=== PATIENT | female | born 1985 | race Caucasian/White ===

== ENCOUNTER 2018-04-06 13:05 | Emergency (ER) | payer OTHER, SELFPAY ==
[2018-04-06 13:07] VITALS: BP 115/58; PULSE 89; RESP 18; TEMP 36.9; O2SAT 99
[2018-04-06 14:22] VITALS: BP 105/92; PULSE 86; RESP 23; O2SAT 100
--- NOTE | 2018-04-06 14:41 | DI.US.S_ITS ---
PROCEDURE: US ABDOMEN COMPLETE INDICATIONS: Epigstric pain, radiation to back TECHNIQUE: Real-time scanning was performed of the abdominal and retroperitoneal organs, with image documentation. COMPARISON: [facility], [place], ABDOMEN COMPLETE, 12/14/2017, 17:58. FINDINGS: Liver: Liver is normal in size and homogeneous in echotexture. Gallbladder: The bladder is normal in size and contains a 9 mm gallstone within the region of the neck of the gallbladder. Mild thickening of the wall of the gallbladder is present, measuring up to 4 mm. No pericholecystic fluid is evident. Biliary ducts: Intrahepatic bile ducts are non-dilated. Extrahepatic bile duct caliber measures 6 mm. Normal is 6-7 mm or less in diameter, or 10 mm or less post-cholecystectomy. Pancreas: Visualized portions of the pancreas are sonographically normal. Spleen: Spleen is normal in size and homogeneous in echotexture. Kidneys: Kidneys are normal in size and echotexture. Right kidney measures 12.7 cm long; left kidney measures 14.1 cm long. No hydronephrosis or nephrolithiasis. No solid masses. Aorta: Visualized aorta is normal in caliber at less than 3 cm. Iliacs: Obscured by bowel gas. IVC: Intrahepatic inferior vena cava is patent. Miscellaneous: No free abdominal fluid. The heart rate was measured at 128bpm. IMPRESSION: 1. Cholelithiasis with mild gallbladder wall thickening is nonspecific. Please correlate clinically to exclude the possibility of cholecystitis. 2. Live intrauterine . Dictated by: Jasper Devlin M.D. on 04/06/2018 at 15:41 Approved by: Jasper Devlin M.D. on 04/06/2018 at 16:04
--- NOTE | 2018-04-06 14:41 | DI.US.S_ITS ---
PROCEDURE: US PERIPH VENOUS LOW EXTREM BI INDICATIONS: hx PE, sent by high school art teacher for CP/SOB TECHNIQUE: Real-time imaging, as well as color and pulse Doppler interrogation, were performed of the deep veins of both legs from the inguinal ligament to the popliteal fossa. COMPARISON: None. FINDINGS: The deep veins are normally compressible, and free of intraluminal thrombus. Color and pulse Doppler demonstrate normal phasic intravascular flow. There is normal augmentation response to distal compression maneuver. IMPRESSION: No evidence of deep venous thrombosis. Dictated by: Lenny Woody M.D. on 04/06/2018 at 14:35 Approved by: Lenny Woody M.D. on 04/06/2018 at 14:41
[2018-04-06 14:51] LABS: Add Manual Diff / Slide Review NO; Basophils Percent Auto 0.3 % (0-2); Eosinophils Percent Auto 1.4 % (2-4); Hematocrit 32.9 % (36-46); Hemoglobin 10.7 g/dL (12.0-16.0); Mean Corpuscular HGB Conc 32.4 % (30-36); Mean Corpuscular Hemoglobin 25.3 PG (26-34); Mean Corpuscular Volume 78.2 fL (80-100); Monocytes Percent Auto 4.6 % (3-14); Neutrophils Absolute Auto 6800 /uL (3000-5900); Neutrophils Percent Auto 74.7 % (50-75); Platelet Count 204 X10^3/uL (150-400); Red Blood Cell Count 4.21 X10^6/uL (4.0-5.2); Red Cell Distribution Width 14.9 % (11.6-14.8); White Blood Cell Count 9.1 X10^3/uL (4.5-11.0)
[2018-04-06 15:04] LABS: Alanine Aminotransferase 13 IU/L (9-52); Albumin 3.7 g/dL (3.5-5.0); Albumin Globulin Ratio 1.1 (1.0-2.8); Alkaline Phosphatase 70 U/L (38-126); Aspartate Aminotransferase 11 IU/L (14-36); BUN Creatinine Ratio 17.5 (6-22); Bilirubin Total 0.3 mg/dL (0.2-1.3); Blood Urea Nitrogen 7 mg/dL (7-17); Carbon Dioxide 25 mmol/L (22-32); Chloride 102 mmol/L (98-107); Estimated Glomerular Filt Rate > 60.0 mL/min (>60); Globulin 3.4 g/dL (1.7-4.1); Glucose 82 mg/dL (70-100); HEMOLYSIS < 15 (0-50); Lipase 127 U/L (23-300); Sodium 137 mmol/L (137-145); Total Protein 7.1 g/dL (6.3-8.2)
[2018-04-06 15:21] LABS: HCG Quantitative /Beta subunit 12143 mIU/mL
[2018-04-06 15:34] VITALS: BP 108/56; PULSE 80; RESP 30; O2SAT 99
[2018-04-06 16:05] VITALS: BP 106/56; PULSE 96; RESP 27; O2SAT 100
--- NOTE | 2018-04-06 16:11 | ED_ITS ---
HPI - SOB/Dyspnea General Chief Complaint: Shortness of Breath/Dyspnea Stated Complaint: BACK PAIN Time Seen by Provider: 04/06/18 14:12 Source: patient Mode of arrival: ambulatory Limitations: no limitations History of Present Illness 32-year-old female is a at 29 weeks with a history of high risk . She had a pulmonary embolism after last and is still taking Lovenox. She presents with epigastric pain that radiates to her back and is made worse a big deep breath. She denies fever or chills nor nausea or vomiting. She denies any swelling, redness or warmth of her lower extremities. MD Complaint: shortness of breath and pain with inspiration Onset (ago): day(s) Severity: moderate Consistency/Duration: intermittent Known history of: PE Associated symptoms: chest pain and pain with inspiration Treatment prior to arrival: none Related Data Home Medications Medication Instructions Recorded Confirmed aspirin 81 mg PO QDAY #0 12/14/17 04/06/18 vit-iron fum-folic ac 1 cap PO QDAY #0 12/14/17 04/06/18 [Mynatal] enoxaparin 40 mg SUB-Q DAILY 04/06/18 04/06/18 ferrous sulfate 1 tab PO DAILY 04/06/18 04/06/18 omeprazole 20 mg PO DAILY 04/06/18 04/06/18 Previous Rx's Medication Instructions Recorded ondansetron [Zofran ODT] 4 mg SUBLINGUAL Q6HP PRN #30 odt 12/14/17 Allergies Allergy/AdvReac Type Severity Reaction Status Date / Time albuterol [From VENTOLIN HFA] Allergy Unknown Unverified 01/27/18 12:43 sulfamethoxazole Allergy Unknown Unverified 01/27/18 12:43 [From BACTRIM] trimethoprim [From BACTRIM] Allergy Unknown Unverified 01/27/18 12:43 Review of Systems Review of Systems All systems reviewed & are unremarkable except as noted in HPI and below Constitutional Denies chills, Denies fever(s), Denies lethargy and Denies weakness Eyes Denies change in vision, Denies eye discharge, Denies irritation and Denies loss of vision ENT Ears, Nose, Mouth, and Throat: Denies change in voice, Denies neck pain and Denies sore throat Cardiovascular Reports chest pain, Denies irregular heart rhythm, Denies lightheadedness, Denies palpitations, Denies dyspnea, Denies dyspnea on exertion and Denies orthopnea Respiratory Denies cough, Reports pain on inspiration, Denies dyspnea, Denies dyspnea on exertion and Denies wheezing Gastrointestinal Gastrointestinal: Reports abdominal pain, Denies change in bowel habits, Denies diarrhea, Denies nausea and Denies vomiting Genitourinary Denies hematuria, Denies flank pain, Denies urinary incontinence and Denies urinary urgency Musculoskeletal Denies neck pain Integumentary/Breasts Denies pruritus, Denies erythema, Denies rash and Denies wounds Neurologic Denies confusion, Denies loss of vision and Denies weakness Psychiatric Denies anxiety, Denies confusion, Denies depression, Denies homicidal ideation and Denies suicidal ideation Endocrine Denies palpitations Hematologic/Lymphatic Denies easy bruising Allergic/Immunologic Denies wheezing PFSH Social History Smoking Status: Never smoker Exam Narrative Exam Narrative: Pleasant 32-year-old female in no obvious distress, resting comfortably Initial Vital Signs Initial Vital Signs: Vital Signs Temperature 98.5 F 04/06/18 13:07 Pulse Rate 89 04/06/18 13:07 Respiratory Rate 18 04/06/18 13:07 Blood Pressure 115/58 L 04/06/18 13:07 Pulse Oximetry 99 04/06/18 13:07 Const General: cooperative and well developed Nutritional Appearance: well nourished Orientation: alert, awake, oriented x3 and not confused [facility] Head: normocephalic and atraumatic Ears: external ears normal and TM's normal bilaterally Nose: external nose normal and No nasal discharge Face and sinus: sinuses nontender, face symmetric, no sinus tenderness and No dry mucous membranes Mouth: oral mucosae normal and moist mucous membranes Teeth and gingiva: dentition normal Throat: tonsils normal and uvula midline Eyes General: appearance normal, both eyes and all related structures Eyelids: eyelids normal Conjunctivae: conjunctivae normal Sclera: sclerae normal Pupils: PERRL EOM: EOM intact bilaterally Neck Neck: normal visual inspection, trachea midline, No lymphadenopathy, No midline deformity and No JVD Lymphatic: No lymphedema Chest Chest: normal inspection of the chest Resp Effort & Inspection: normal respiratory effort, able to speak in complete sentences, no respiratory distress and no use of accessory muscles Auscultation: clear to auscultation bilaterally, no rales, no rhonchi and no wheezes Cardio Rate: regular rate Rhythm: regular rhythm Heart Sounds: no click, no gallops, no murmurs and no rubs Pulses: normal peripheral pulses GI Inspection: non-distended Palpation: soft, no hepatosplenomegaly, No guarding, No pulsatile mass and tender (Epigastrium) Auscultation: normal bowel sounds Back/Spine/Pelvis Back: No CVA tenderness Cervical Spine: cervical ROM normal and No pain with cervical ROM Thoracic/Lumbar Spine: thoracic and lumbar spine normal to inspection Skin General: no rashes or lesions noted, No jaundice and No petechiae Neuro General: alert, oriented x3, gait normal and no focal motor deficits Speech: speech normal Extrem General: full ROM, no clubbing, cyanosis or edema, no pedal edema and no calf tenderness Psych Appearance: well kempt Mental Status: mental status grossly normal Attitude: cooperative Thought Content: normal and suicidality Judgment: judgment good Course Orders Ordered: ED Orders 04/06/18 14:41 US abdomen complete Stat US periph venous low extrem bi Stat 04/06/18 14:45 Complete Blood Count AUTO DIFF Stat Comprehensive Metabolic Panel Stat HCG Quantitative Stat Lipase Stat Consultations Consultation #1: call to Dr. Artur Kapoor (nuclear equipment sales engineer) at [facility], Dr. Woody returned paged. Discusse presentation, labs, imaging. No signs of PE. Ok to DC Time: 16:20 Vital Signs - 8 hr 04/06/18 13:07 04/06/18 14:22 04/06/18 15:34 Temperature 98.5 F Pulse Rate 89 86 80 Respiratory Rate 18 23 30 H Blood Pressure 115/58 L Blood Pressure [Right Arm] 105/92 H 108/56 L Pulse Oximetry 99 100 99 MDM - SOB/Dyspnea Medical Records Attestation: I reviewed the patient's medical records. Lab Data Result diagrams: 04/06/18 14:45 04/06/18 14:45 Lab Results 04/06/18 04/06/18 Range/Units 14:45 14:45 WBC 9.1 (4.5-11.0) X10^3/uL RBC 4.21 (4.0-5.2) X10^6/uL Hgb 10.7 L (12.0-16.0) g/dL Hct 32.9 L (36-46) % MCV 78.2 L (80-100) fL MCH 25.3 L (26-34) PG MCHC 32.4 (30-36) % RDW 14.9 H (11.6-14.8) % Plt Count 204 (150-400) X10^3/uL Neut % (Auto) 74.7 (50-75) % Lymph % (Auto) 19.0 L (25-40) % [place] % (Auto) 4.6 (3-14) % Eos % (Auto) 1.4 L (2-4) % Baso % (Auto) 0.3 (0-2) % Neut # (Auto) 6800 H (6102-7008) /uL Sodium 137 (137-145) mmol/L Potassium 4.0 (3.4-5.1) mmol/L Chloride 102 (98-107) mmol/L Carbon Dioxide 25 (22-32) mmol/L BUN 7 (7-17) mg/dL Creatinine 0.40 L (0.52-1.04) mg/dL Estimated GFR > 60.0 (>60) mL/min BUN/Creatinine Ratio 17.5 (6-22) Glucose 82 (70-100) mg/dL Calcium 9.0 (8.4-10.2) mg/dL Total Bilirubin 0.3 (0.2-1.3) mg/dL AST 11 L (14-36) IU/L ALT 13 (9-52) IU/L Alkaline Phosphatase 70 (38-126) U/L Total Protein 7.1 (6.3-8.2) g/dL Albumin 3.7 (3.5-5.0) g/dL Globulin 3.4 (1.7-4.1) g/dL Albumin/Globulin Ratio 1.1 (1.0-2.8) Lipase 127 (23-300) U/L HCG, Quant 05337 mIU/mL Imaging Data US - abdomen: Radiologist's impression: PROCEDURE: US ABDOMEN COMPLETE INDICATIONS: Epigstric pain, radiation to back TECHNIQUE: Real-time scanning was performed of the abdominal and retroperitoneal organs, with image documentation. COMPARISON: [facility], US, ABDOMEN COMPLETE, 12/14/2017, 17:58. FINDINGS: Liver: Liver is normal in size and homogeneous in echotexture. Gallbladder: The bladder is normal in size and contains a 9 mm gallstone within the region of the neck of the gallbladder. Mild thickening of the wall of the gallbladder is present, measuring up to 4 mm. No pericholecystic fluid is evident. Biliary ducts: Intrahepatic bile ducts are non-dilated. Extrahepatic bile duct caliber measures 6 mm. Normal is 6-7 mm or less in diameter, or 10 mm or less post-cholecystectomy. Pancreas: Visualized portions of the pancreas are sonographically normal. Spleen: Spleen is normal in size and homogeneous in echotexture. Kidneys: Kidneys are normal in size and echotexture. Right kidney measures 12.7 cm long; left kidney measures 14.1 cm long. No hydronephrosis or nephrolithiasis. No solid masses. Aorta: Visualized aorta is normal in caliber at less than 3 cm. Iliacs: Obscured by bowel gas. IVC: Intrahepatic inferior vena cava is patent. Miscellaneous: No free abdominal fluid. The heart rate was measured at 128bpm. IMPRESSION: 1. Cholelithiasis with mild gallbladder wall thickening is nonspecific. Please correlate clinically to exclude the possibility of cholecystitis. 2. Live intrauterine . Dictated by: Jasper Devlin M.D. on 04/06/2018 at 15:41 Approved by: Jasper Devlin M.D. on 04/06/2018 at 16:04 B/L LE DVT: Radiologist's impression: PROCEDURE: US PERIPH VENOUS LOW EXTREM BI INDICATIONS: hx PE, sent by highway inspector for CP/SOB TECHNIQUE: Real-time imaging, as well as color and pulse Doppler interrogation, were performed of the deep veins of both legs from the inguinal ligament to the popliteal fossa. COMPARISON: None. FINDINGS: The deep veins are normally compressible, and free of intraluminal thrombus. Color and pulse Doppler demonstrate normal phasic intravascular flow. There is normal augmentation response to distal compression maneuver. IMPRESSION: No evidence of deep venous thrombosis. Dictated by: Lenny Woody M.D. on 04/06/2018 at 14:35 Approved by: Lenny Woody M.D. on 04/06/2018 at 14:41 MDM Narrative Medical decision making narrative: Patient has reproducible epigastric pain with radiation to her back. She has known gallbladder disease. She is on Lovenox, denies shortness of breath, has normal vitals, and normal lower extremity DVTs, she is very low risk of a clinically significant PE and at this point we will avoid use of potentially damaging radiation. I have discussed this with her OB group as well as patient, risks and benefits have been discussed Discharge Plan Departure Patient Disposition: Home, Self-Care Clinical Impression: Epigastric abdominal pain Instructions: DI for Epigastric Pain Activity Restrictions/Additional Instructions: 1. Drink plenty of fluids with frequent small sips. 2. For the next 24 hours a clear liquid diet is advised. After that please employ a BRAT diet which would include bananas, rice, apples, toast. 3. Please take medications as directed. 4. Please follow-up with your doctor in the next 1-2 days. Call the office for an appointment. 5. Please return to the emergency Department for any worsening or persistent symptoms, such as increasing pain or fever. Prescriptions: No Action aspirin 81 MG tablet,delayed release (DR/EC) 81 mg PO QDAY Qty: 0 RF: 0 vit-iron fum-folic ac [Mynatal] 1 EACH capsule 1 cap PO QDAY Qty: 0 RF: 0 ondansetron [Zofran ODT] 4 MG tablet,disintegrating 4 mg Sublingual Q6HP PRNQty: 30 RF: 0 ferrous sulfate 325 mg (65 mg iron) tablet 1 tab PO DAILY RF: 0 omeprazole 20 mg capsule,delayed release(DR/EC) 20 mg PO DAILY RF: 0 enoxaparin 40 mg/0.4 mL syringe 40 mg Sub-Q DAILY RF: 0
[2018-04-06 16:35] VITALS: BP 115/71; PULSE 98; RESP 20; TEMP 36.8; O2SAT 97
== END 2018-04-06 16:46 | disposition home or self-care (01) ==
PROVIDERS: Emergency Provider Emergency Medicine
DX: R10.13 Epigastric pain (principal)
CPT/HCPCS: 36591; 76700; 80053; 81003; 83690; 84702; 85025; 93970; 99283; 99284

== ENCOUNTER 2019-06-13 12:18 | Emergency (ER) | payer OTHER, SELFPAY ==
[2019-06-13 12:20] VITALS: BP 124/56; PULSE 84; RESP 18; TEMP 36.7; O2SAT 97
[2019-06-13 12:52] LABS: Hematocrit 37.6 % (36-46); Hemoglobin 12.3 g/dL (12.0-16.0); Mean Corpuscular HGB Conc 32.7 % (30-36); Mean Corpuscular Hemoglobin 26.6 PG (26-34); Mean Corpuscular Volume 81.4 fL (80-100); Platelet Count 240 X10^3/uL (150-400); Red Blood Cell Count 4.61 X10^6/uL (4.0-5.2); Red Cell Distribution Width 14.9 % (11.6-14.8); White Blood Cell Count 7.7 X10^3/uL (4.5-11.0)
[2019-06-13 13:02] LABS: Blood Urea Nitrogen 19 mg/dL (7-17); Calcium 9.4 mg/dL (8.4-10.2); Carbon Dioxide 26 mmol/L (22-32); Chloride 105 mmol/L (98-107); Estimated Glomerular Filt Rate > 60.0 mL/min (>60); Glucose 93 mg/dL (70-100); HEMOLYSIS < 15 (0-50); Potassium 4.2 mmol/L (3.4-5.1); Sodium 141 mmol/L (137-145)
[2019-06-13 13:16] LABS: Anisocytosis 1+; Neutrophils Absolute Manual 4158 /uL (3000-5900); Total Cells Counted 100
[2019-06-13 13:17] LABS: Polychromasia 1+
--- NOTE | 2019-06-13 13:17 | ED.PREGNANCY ---
[facility] - Last Filed: 06/14/19 01:49> General Chief complaint: Vaginal Bleeding Stated complaint: Feeling weak and dizzy Time Seen by Provider: 06/13/19 12:35 Source: patient Mode of arrival: ambulatory Limitations: no limitations History of Present Illness HPI Narrative: This is a 33-year-old female, nonsmoker, who presents with heavy menstruation since 04/15/2019. Patient reports she had started heavy menses since her last child delivery and bilateral tubal ligation in JUL 2018. Patient reports she has to change has Q1-2 hours and she is tired of cramping discomfort in abdomen and back, and bleeding. Patient reports no chest pain, breathing difficulty but some weakness and mild lightheadedness. She denies urinary symptoms such as dysuria, burning with urination but she has urinary frequency. However, she reports has been increasing oral hydration. The patient was seen at [facility] by Dr. Ortega who is conference interpreter specialist and was prescribed with Provera on Thursday. She has been taking this medication as instructed and noticed her bleeding is heavier now with more clots. She called the office to be seen today but there was no available appointment and was referred to emergency room. She is waiting for OB surgeon evaluation at [facility] for possible hysterectomy. Patient has been ibuprofen 800 mg about 3 times a day. Related Data Home Medications Medication Instructions Recorded Confirmed ergocalciferol (vitamin D2) 50,000 unit PO QWEEK 06/13/19 06/13/19 ferrous sulfate 1 dose PO 2XW 06/13/19 06/13/19 trazodone 50 - 150 mg PO BEDTIME PRN 06/13/19 06/13/19 Allergies Allergy/AdvReac Type Severity Reaction Status Date / Time albuterol [From VENTOLIN HFA] Allergy Unknown Verified 06/13/19 12:27 sulfamethoxazole Allergy Unknown Verified 06/13/19 12:27 [From BACTRIM] trimethoprim [From BACTRIM] Allergy Unknown Verified 06/13/19 12:27 Review of Systems <[facility] - Last Filed: 06/14/19 01:49> Review of Systems ROS Unobtainable: All systems reviewed & are unremarkable except as noted in HPI and below PMFSH - <[facility] - Last Filed: 06/14/19 01:49> Past Medical History Menorrhagia, PE, miscarriage, cholelithiasis Exam <ELISA Cagle - Last Filed: 06/14/19 01:49> Narrative Exam Narrative: General appearance: well developed, well nourished, in no acute distress. Head: normocephalic, atraumatic, no scalp lesions, non-tender. Eye: pupil equal, round. EOMI. Nose: nares patent. Oral: mucosa moist. Neck/Thyroid: neck supple, full range of motion, no visible masses. Skin: no suspicious rashes, lesions over visible areas. Warm and dry. Heart: no clubbing, no cyanosis, no edema. Lungs: Breathing even and unlabored. No stridor. No accessory muscles used. Chest: normal shape and expansion. Abdomen: non-obese, non-distended. Neurologic: alert and oriented. Cognitive exam, PSYCHIATRIC TECH and PNS grossly intact on informal exam. Psych: good eye contact, normal affect. Initial Vital Signs Initial Vital Signs: Vital Signs Temperature 98.1 F 06/13/19 12:20 Pulse Rate 84 06/13/19 12:20 Respiratory Rate 18 06/13/19 12:20 Blood Pressure 124/56 L 06/13/19 12:20 Pulse Oximetry 97 06/13/19 12:20 <Mile Herrera MD - Last Filed: 06/16/19 07:10> Initial Vital Signs Initial Vital Signs: Vital Signs Temperature 98.1 F 06/13/19 12:20 Pulse Rate 84 06/13/19 12:20 Respiratory Rate 18 06/13/19 12:20 Blood Pressure 124/56 L 06/13/19 12:20 Pulse Oximetry 97 06/13/19 12:20 Course <Artemio ClineELISA Rodriguez - Last Filed: 06/14/19 01:49> Orders Ordered: Discontinued Medications Acetaminophen (Tylenol) 975 mg PO NOW ONE Stop: 06/13/19 13:22 Last Admin: 06/13/19 13:31 Dose: 975 mg Documented by: ANISH Ketorolac Tromethamine (Toradol) 60 mg IM NOW ONE Stop: 06/13/19 13:22 Last Admin: 06/13/19 13:31 Dose: 60 mg Documented by: STOBEY Vital Signs - 8 hr 06/13/19 12:20 Temperature 98.1 F Pulse Rate 84 Respiratory Rate 18 Blood Pressure 124/56 L Pulse Oximetry 97 <Mile Herrera MD - Last Filed: 06/16/19 07:10> Orders Ordered: Discontinued Medications Acetaminophen (Tylenol) 975 mg PO NOW ONE Stop: 06/13/19 13:22 Last Admin: 06/13/19 13:31 Dose: 975 mg Documented by: ANISH Ketorolac Tromethamine (Toradol) 60 mg IM NOW ONE Stop: 06/13/19 13:22 Last Admin: 06/13/19 13:31 Dose: 60 mg Documented by: ANISH Vital Signs - 8 hr 06/13/19 12:20 Temperature 98.1 F Pulse Rate 84 Respiratory Rate 18 Blood Pressure 124/56 L Pulse Oximetry 97 MDM - OB/Uterine Contractions <ELISA Cagle - Last Filed: 06/14/19 01:49> Differential Diagnosis Likely other (Menorrhagia, anemia) Medical Records Attestation: I reviewed the patient's medical records. Lab Data Attestation: I reviewed the patient's lab results. Result diagrams: 06/13/19 12:45 06/13/19 12:45 Lab Results 06/13/19 06/13/19 06/13/19 Range/Units 12:45 12:45 12:50 WBC 7.7 (4.5-11.0) X10^3/uL RBC 4.61 (4.0-5.2) X10^6/uL Hgb 12.3 (12.0-16.0) g/dL Hct 37.6 (36-46) % MCV 81.4 (80-100) fL MCH 26.6 (26-34) PG MCHC 32.7 (30-36) % RDW 14.9 H (11.6-14.8) % Plt Count 240 (150-400) X10^3/uL Total Counted 100 Seg Neutrophils % 54.0 (38-70) % Lymphocytes % (Manual) 41.0 (25-45) % Atypical Lymphs % 1.0 H ( - 0) % Monocytes % (Manual) 4.0 (2-11) % Neutrophils # (Manual) 4158 (4925-5441) /uL RBC Morphology See below Polychromasia 1+ H Anisocytosis 1+ H Sodium 141 (137-145) mmol/L Potassium 4.2 (3.4-5.1) mmol/L Chloride 105 (98-107) mmol/L Carbon Dioxide 26 (22-32) mmol/L BUN 19 H (7-17) mg/dL Creatinine 0.50 L (0.52-1.04) mg/dL Estimated GFR > 60.0 (>60) mL/min BUN/Creatinine Ratio 38.0 H (6-22) Glucose 93 (70-100) mg/dL Calcium 9.4 (8.4-10.2) mg/dL Urine RBC >100/hpf H (0-5/HPF) Urine WBC 1-5/hpf (0-5/HPF) Ur Squamous Epith Cells 5-10 /hpf H (0-5/HPF) Urine Bacteria Moderate (10-30) H (None) Ur Culture Indicated? Cult not indicated Point of Care Testing Test Results Negative Urine Dip Bedside Urine Glucose Negative Bedside Urine Bilirubin - Negative Bedside Urine Ketone - Negative Urine Specific [place] 1.020 Bedside Urine Occult Blood +++ Bedside Urine pH 7.5 Bedside Urine Protein +/- 15 Bedside Urine Urobilinogen - Negative Bedside Urine Nitrite - Negative Bedside Urine Leukocytes - Negative Esterase MDM Narrative Medical decision making narrative: This is a 33-year-old female with long history of menorrhagia with a strong family history of menorrhagia. Patient reports are her female relatives had hysterectomy before age 37 due to same reasons. Patient has recently placed on Provera medication to slow down the bleed which has been effective the patient is report. The patient also has been using [id number] ibuprofen for cramping. Patient denies symptoms for anemia. The patient is currently waiting for an appointment with conference interpreter surgeons at [facility] in June. The lab tests were done with unremarkable H&H chemistry test. The urine test does not appears to be having an infection but rather contaminated sample. Patient reports her pain has improved after the medication. Patient advised to follow with her tax staff accountant provider to discuss whether to continue to use Provera at [facility] and to keep an appointment with conference interpreter surgeon and [facility]. The findings were shared with the patient and advised to continue to take vitamins and iron pill and to hydrate well orally. The patient agrees with treatment plan and no further questions were expressed. <Mile Herrera MD - Last Filed: 06/16/19 07:10> Lab Data Lab Results 06/13/19 06/13/19 06/13/19 Range/Units 12:45 12:45 12:50 WBC 7.7 (4.5-11.0) X10^3/uL RBC 4.61 (4.0-5.2) X10^6/uL Hgb 12.3 (12.0-16.0) g/dL Hct 37.6 (36-46) % MCV 81.4 (80-100) fL MCH 26.6 (26-34) PG MCHC 32.7 (30-36) % RDW 14.9 H (11.6-14.8) % Plt Count 240 (150-400) X10^3/uL Total Counted 100 Seg Neutrophils % 54.0 (38-70) % Lymphocytes % (Manual) 41.0 (25-45) % Atypical Lymphs % 1.0 H ( - 0) % Monocytes % (Manual) 4.0 (2-11) % Neutrophils # (Manual) 4158 (9007-9913) /uL RBC Morphology See below Polychromasia 1+ H Anisocytosis 1+ H Sodium 141 (137-145) mmol/L Potassium 4.2 (3.4-5.1) mmol/L Chloride 105 (98-107) mmol/L Carbon Dioxide 26 (22-32) mmol/L BUN 19 H (7-17) mg/dL Creatinine 0.50 L (0.52-1.04) mg/dL Estimated GFR > 60.0 (>60) mL/min BUN/Creatinine Ratio 38.0 H (6-22) Glucose 93 (70-100) mg/dL Calcium 9.4 (8.4-10.2) mg/dL Urine RBC >100/hpf H (0-5/HPF) Urine WBC 1-5/hpf (0-5/HPF) Ur Squamous Epith Cells 5-10 /hpf H (0-5/HPF) Urine Bacteria Moderate (10-30) H (None) Ur Culture Indicated? Cult not indicated Point of Care Testing Test Results Negative Urine Dip Bedside Urine Glucose Negative Bedside Urine Bilirubin - Negative Bedside Urine Ketone - Negative Urine Specific [place] 1.020 Bedside Urine Occult Blood +++ Bedside Urine pH 7.5 Bedside Urine Protein +/- 15 Bedside Urine Urobilinogen - Negative Bedside Urine Nitrite - Negative Bedside Urine Leukocytes - Negative Esterase Discharge Plan Departure Patient Disposition: Home Clinical Impression: Menorrhagia Qualifiers: Menorrahagia type: with onset of menstrual periods Qualified Code(s): N92.2 - Excessive menstruation at puberty Discharge Date/Time: 06/13/19 14:28 Instructions: DI for Menorrhagia Activity Restrictions/Additional Instructions: You have been diagnosed with [heavy uterine bleeding, menorrhagia. Your lab test today does not indicate anemia. Please continue taking your vitamin and iron pill. Increase oral fluid hydration. You're urine test today does not appears to be having on infection.]. What to do: *Take your medications as directed. Continue to take Provera until you called the doctor Jordan's office and let them know your symptoms and instructed otherwise. You could continue to take [id number] Tylenol and Motrin for cramping discomfort. *Follow up with your primary care provider in 2-3 days, call for an appointment. Let them know you were seen in the ED and that we asked you to be seen in follow up. *Return to ED if you have any new, worsening, or concerning symptoms, such as [chest pain, breathing difficulty, dizziness, any acute concerns.]. Prescriptions: No Action ergocalciferol (vitamin D2) 50,000 unit capsule 50,000 unit PO QWEEK RF: 0 ferrous sulfate 15 mg iron (75 mg)/mL Drops 1 dose PO 2XW RF: 0 trazodone 50 mg tablet 50 - 150 mg PO BEDTIME PRN (Reason: Sleep) RF: 0 Referrals: [facility] [Outside] Kayleen Pyle DO [Primary Care Provider] -
[2019-06-13 13:29] LABS: Bacteria Urine Moderate (10-30); RBC Urine >100/HPF (0-5/HPF); Squamous Epithelial Cell Urine 5-10 /HPF (0-5/HPF); WBC Urine 1-5/HPF (0-5/HPF)
[2019-06-13 13:30] LABS: Culture Indicated Urine Cult Not Indicated
[2019-06-13] MEDS: KETOROLAC 60 MG/2 ML VIAL IM (13:31)
[2019-06-13] MEDS: ACETAMINOPHEN 325 MG TABLET 975 MG PO (13:31)
[2019-06-13 14:21] VITALS: BP 101/51; PULSE 67; RESP 15; O2SAT 100
== END 2019-06-13 14:28 | disposition home or self-care (01) ==
PROVIDERS: Emergency Medicine; Emergency Provider Nurse Practitioner Family; PCP Family Medicine
DX: N92.0 Excessive and frequent menstruation with regular cycle (principal)
CPT/HCPCS: 36415; 80048; 81003; 81015; 81025; 85025; 96372; 99283; J1885

== ENCOUNTER 2020-11-11 18:19 | Emergency (ER) | payer OTHER, SELFPAY ==
[2020-11-11 18:43] VITALS: BP 141/80; PULSE 95; RESP 18; TEMP 36.9; O2SAT 100; BMI 54.3
[2020-11-11 18:45] LABS: Bacteria Urine None Seen
[2020-11-11 18:53] LABS: RBC Urine 10-30/HPF (0-5/HPF); Squamous Epithelial Cell Urine 0-1 /HPF (0-5/HPF); WBC Urine 10-30/HPF (0-5/HPF)
[2020-11-11 18:54] LABS: Culture Indicated Urine Specimen Cultured
--- NOTE | 2020-11-11 18:58 | ED.GENADULT ---
HPI - General Adult General Chief complaint: Urogenital-Female Stated complaint: possible UTI, nausea, vomiting Time Seen by Provider: 11/11/20 18:56 Source: patient Mode of arrival: Ambulatory Limitations: no limitations History of Present Illness HPI narrative: 35-year-old woman presents with left flank pain that is been increasing since November 04. She reports that she awoke the morning of the with notable amount of blood in her underwear. She is post hysterectomy has never had rectal bleeding and notes that she continues to have pink discharge on the toilet paper when wiping after voiding. [place] and found no significant abnormalities and ordered blood work that revealed a white blood cell count of 8.2 H&H of 12.5 and 37.7 platelets 264 chemistries were done and were unremarkable with normal LFTs. She has follow-up scheduled with her primary care doctor however was instructed come to the emergency department if she feels that she is getting worse. She notes over the past 48 hours to the left flank pain has been much more consistent and much more painful. She describes no specific vaginal discharge but continues to note the pink discoloration with voiding. She describes no specific dysuria, no fevers, no cough, she is having some low left posterior chest pain just over her left flank and does note that movement tends to make that pain worse as does deep breathing. She describes no palpitations, no headaches, no new edema. Related Data Home Medications Medication Instructions Recorded Confirmed ergocalciferol (vitamin D2) 50,000 unit PO QWEEK 06/13/19 06/13/19 ferrous sulfate 1 dose PO 2XW 06/13/19 06/13/19 trazodone 50 - 150 mg PO BEDTIME PRN 06/13/19 06/13/19 Previous Rx's Medication Instructions Recorded oxycodone-acetaminophen 1 tab PO Q6H PRN #20 tab 11/11/20 Allergies Allergy/AdvReac Type Severity Reaction Status Date / Time albuterol [From VENTOLIN HFA] Allergy Unknown Verified 06/13/19 12:27 sulfamethoxazole Allergy Unknown Verified 06/13/19 12:27 [From BACTRIM] trimethoprim [From BACTRIM] Allergy Unknown Verified 06/13/19 12:27 Review of Systems Review of Systems ROS Unobtainable: All systems reviewed & are unremarkable except as noted in HPI and below Patient History Surgical History (Updated 11/11/20 @ 20:38 by Nita Oliva MD) Hx of vaginal hysterectomy Social History Smoking Status: Never smoker Smoking Status: Never smoker alcohol intake frequency: 0-2 drinks per day Substance Use Type: does not use Exam Narrative Exam Narrative: General: Healthy appearing, in moderate distress. Able to give a complete and coherent history. Well-nourished well-developed HEENT: Moist mucous membranes, normal sclera with reactive pupils, Neck: No JVD, supple Respiratory: Lungs are clear to auscultation, no wheezing no rales no rhonchi. Full and symmetrical air movement Cardiac: Regular rate and rhythm no murmurs no bruits Abdomen: Soft, nontender, good bowel tones. Mild left flank pain and tenderness along left posterior ribs with palpation. No skin changes Skin: Warm and dry, no rashes Neurologic: Grossly neurologically intact with no obvious asymmetries or abnormalities Extremities: No trauma, well perfused Psych: Cooperative, appropriate insight and affect Pelvic exam: External genitalia is unremarkable, there are small bits of blood mixed with some toilet tissue that are noted in some of the folds increases. There is no obvious bleeding around the urethra, vagina or rectum. Vaginal bimanual exam is entirely benign with a surgically absent uterus and no blood on the glove after exam. No evidence of hemorrhoids. Initial Vital Signs Initial Vital Signs: Vital Signs Temperature 98.4 F 11/11/20 18:43 Pulse Rate 95 H 11/11/20 18:43 Respiratory Rate 18 11/11/20 18:43 Blood Pressure 141/80 H 11/11/20 18:43 Pulse Oximetry 100 11/11/20 18:43 Course Orders Ordered: ED Orders 11/11/20 18:00 Urine Culture Stat Urine Microscopic Stat 11/11/20 19:12 CT kidney ureter bladder (KUB) Stat 11/11/20 19:35 Complete Blood Count AUTO DIFF Stat Comprehensive Metabolic Panel Stat Lipase Stat Procalcitonin Stat Discontinued Medications Sodium Chloride (Normal Saline 0.9%) 1,000 mls @ 1,000 mls/hr IV BOLUS ONE Stop: 11/11/20 20:10 Last Infusion: 11/11/20 20:29 Dose: 0 mls/hr Documented by: Admin: 11/11/20 19:23 Dose: 1,000 mls/hr Documented by: BONNIE Ketorolac Tromethamine (Ketorolac 60 Mg/2 Ml Vial) 15 mg IV NOW ONE Stop: 11/11/20 19:12 Last Admin: 11/11/20 19:23 Dose: 15 mg Documented by: BONNIE Ondansetron HCl (Ondansetron 4 Mg/2 Ml Inj) 4 mg IV NOW ONE Stop: 11/11/20 19:12 Last Admin: 11/11/20 19:24 Dose: 4 mg Documented by: BONNIE Oxycodone/Acetaminophen (Oxycodone/Apap 5/325 Prepack) 1 bottle MISC SEEINSTR ONE Stop: 11/11/20 20:53 Last Admin: 11/11/20 21:01 Dose: 1 bottle Documented by: BONNIE Vital Signs Vital signs: Vital Signs - 8 hr 11/11/20 18:43 11/11/20 20:14 11/11/20 21:06 Temperature 98.4 F Pulse Rate 95 H 90 90 Respiratory Rate 18 16 16 Blood Pressure 141/80 H 111/59 L 115/80 Pulse Oximetry 100 99 99 Medical Decision Making Medical Records Medical records reviewed: Yes I reviewed the patient's medical records. Lab Data Lab results reviewed: Yes I reviewed the patient's lab results. Result diagrams: 11/11/20 19:35 11/11/20 19:35 Labs: Lab Results 11/11/20 11/11/20 11/11/20 Range/Units 18:00 19:35 19:35 WBC 7.8 (4.5-11.0) X10^3/uL RBC 4.88 (4.0-5.2) X10^6/uL Hgb 12.8 (12.0-16.0) g/dL Hct 39.9 (36-46) % MCV 81.8 (80-100) fL MCH 26.3 (26-34) PG MCHC 32.2 (30-36) % RDW 14.8 (11.6-14.8) % Plt Count 255 (150-400) X10^3/uL Neut % (Auto) 53.0 (50-75) % Lymph % (Auto) 38.5 (25-40) % Summers % (Auto) 6.0 (3-14) % Eos % (Auto) 2.0 (2-4) % Baso % (Auto) 0.5 (0-2) % Neut # (Auto) 4100 (9350-0871) /uL Lymph # (Auto) 3000 (2869-2656) /uL Summers # (Auto) 500 (0-900) /uL Eos # (Auto) 200 (0-450) /uL Baso # (Auto) 0 (0-100) /uL Sodium 139 (137-145) mmol/L Potassium 4.5 (3.4-5.1) mmol/L Chloride 105 (98-107) mmol/L Carbon Dioxide 29 (22-32) mmol/L BUN 19 H (7-17) mg/dL Creatinine 0.53 (0.52-1.04) mg/dL Estimated GFR > 60.0 (>60) mL/min BUN/Creatinine Ratio 35.8 H (6-22) Glucose 98 (70-100) mg/dL Calcium 9.0 (8.4-10.2) mg/dL Total Bilirubin 0.3 (0.2-1.3) mg/dL AST 26 (14-36) IU/L ALT 17 (<35) IU/L Alkaline Phosphatase 61 (38-126) U/L Total Protein 7.8 (6.3-8.2) g/dL Albumin 4.4 (3.5-5.0) g/dL Globulin 3.4 (1.7-4.1) g/dL Albumin/Globulin Ratio 1.3 (1.0-2.8) Lipase (23-300) U/L Procalcitonin (<0.5) ng/mL Urine RBC 10-30/hpf H (0-5/HPF) Urine WBC 10-30/hpf H (0-5/HPF) Ur Squamous Epith Cells 0-1 /hpf (0-5/HPF) Urine Bacteria None seen (None) Ur Culture Indicated? Specimen cultured 11/11/20 11/11/20 Range/Units 19:35 19:35 WBC (4.5-11.0) X10^3/uL RBC (4.0-5.2) X10^6/uL Hgb (12.0-16.0) g/dL Hct (36-46) % MCV (80-100) fL MCH (26-34) PG MCHC (30-36) % RDW (11.6-14.8) % Plt Count (150-400) X10^3/uL Neut % (Auto) (50-75) % Lymph % (Auto) (25-40) % Summers % (Auto) (3-14) % Eos % (Auto) (2-4) % Baso % (Auto) (0-2) % Neut # (Auto) (5253-9894) /uL Lymph # (Auto) (1287-7529) /uL Summers # (Auto) (0-900) /uL Eos # (Auto) (0-450) /uL Baso # (Auto) (0-100) /uL Sodium (137-145) mmol/L Potassium (3.4-5.1) mmol/L Chloride (98-107) mmol/L Carbon Dioxide (22-32) mmol/L BUN (7-17) mg/dL Creatinine (0.52-1.04) mg/dL Estimated GFR (>60) mL/min BUN/Creatinine Ratio (6-22) Glucose (70-100) mg/dL Calcium (8.4-10.2) mg/dL Total Bilirubin (0.2-1.3) mg/dL AST (14-36) IU/L ALT (<35) IU/L Alkaline Phosphatase (38-126) U/L Total Protein (6.3-8.2) g/dL Albumin (3.5-5.0) g/dL Globulin (1.7-4.1) g/dL Albumin/Globulin Ratio (1.0-2.8) Lipase 136 (23-300) U/L Procalcitonin < 0.05 (<0.5) ng/mL Urine RBC (0-5/HPF) Urine WBC (0-5/HPF) Ur Squamous Epith Cells (0-5/HPF) Urine Bacteria (None) Ur Culture Indicated? Urine Dip Bedside Urine Glucose Negative Bedside Urine Bilirubin - Negative Bedside Urine Ketone - Negative Urine Specific [place] 1.025 Bedside Urine Occult Blood +++ Bedside Urine pH 6.0 Bedside Urine Protein - Negative Bedside Urine Urobilinogen - Negative Bedside Urine Nitrite - Negative Bedside Urine Leukocytes - Negative Esterase Point of care testing: Urine Dip Bedside Urine Glucose Negative Bedside Urine Bilirubin - Negative Bedside Urine Ketone - Negative Urine Specific [place] 1.025 Bedside Urine Occult Blood +++ Bedside Urine pH 6.0 Bedside Urine Protein - Negative Bedside Urine Urobilinogen - Negative Bedside Urine Nitrite - Negative Bedside Urine Leukocytes - Negative Esterase Imaging Data CT scan - abdomen/pelvis: Radiologist's Impression: FINDINGS: Image quality: Excellent. Lung bases: Lung bases are clear. Heart size is normal. Urinary system: Both kidneys are normal in size. No kidney stones. No hydronephrosis or perinephric fat stranding. Both ureters appear non-dilated throughout their expected courses. Bladder wall thickness is normal; no calcified bladder stones. Other solid organs: Liver is normal in size. Gallbladder is surgically absent. Pancreas is normal in contours. Spleen is normal in size. No adrenal nodules. Peritoneum and bowel: Partial gastrectomy. Unenhanced bowel loops demonstrate normal wall thickness and caliber. No free fluid or air. Nodes and vessels: No retroperitoneal or mesenteric adenopathy by size criteria. Aorta and inferior vena cava are normal in caliber. Abdominal wall: No ventral hernias. Pelvis: No free pelvic fluid. No inguinal hernias or adenopathy. Uterus is surgically absent. Bones: No suspicious bony lesions. No vertebral body compression fractures. IMPRESSION: Unremarkable CT KUB. No renal stone, ureteral stone, or hydronephrosis. Dictated by: Basilio Portillo M.D. on 11/11/2020 at 19:28 Chest x-ray: My Impression: Chest x-ray done at the [facility]. Patient was told that it was entirely normal and there is no suggestion of any rib fractures MDM Narrative Medical decision making narrative: With left flank pain for 2 weeks it has been getting increasingly worse. Labs are reassuring without evidence of acute infection or renal insufficiency. She has quite a few red blood cells but no specific bacteria in her urine. Procalcitonin is also low suggesting the absence of infection. Urine will be cultured and we will contact her if it does grow anything but at this point I suspect it is mostly hematuria. [place], I suspect her abnormal with high-protein etc. due to the acute hematuria. CT scan of the abdomen does not show any significant abnormalities in the left lung base thumb with either kidney, no kidney stones, no masses tumors or abnormalities in the left pericolic gutter. She does not have a dramatic amount of stool in the at splenic flexure descending colon to suggest this might be causing some of her problems. There are no obvious tumors in her around her bladder on the CT scan done without contrast. At this point, I believe it is safe to treat the pain and refer her back to primary care physician for further outpatient follow-up for the undiagnosed left flank pain and continued hematuria. Discharge Plan Departure Patient Disposition: Home Clinical Impression: Acute left flank pain Hematuria Qualifiers: Hematuria type: gross Qualified Code(s): R31.0 - Gross hematuria Instructions: DI for Hematuria Activity Restrictions/Additional Instructions: Thank you for coming in today You clearly do continue to have hematuria however I have not discovered a specific reason to explain this. There is no evidence of kidney masses or tumors, no abnormalities of the ureters, no kidney stones and the bladder itself looks unremarkable on CT scan. Remainder of the abdominal CT is equally reassuring. Your blood work does not suggest acute infection or kidney failure. Your urine has been cultured but at this point does not look like it is infected. If the culture does grow out bacteria, you will be contacted and antibiotics will be prescribed.. At this point, I think it is safe to simply cover up some of the pain while you continue with the outpatient workup. Given the gross hematuria in the setting of a completely normal CT KUB, I believe the next step would be urology consultation. I have given you copies of the blood work and a CT scan done in the emergency department today for [place] If you find that you have new or worsening symptoms please feel free to return to the emergency department for further evaluation Prescriptions: New oxycodone-acetaminophen 5-325 mg tablet 1 tab PO Q6H PRN (Reason: pain) Qty: 20 RF: 0 No Action ergocalciferol (vitamin D2) 50,000 unit capsule 50,000 unit PO QWEEK RF: 0 ferrous sulfate 15 mg iron (75 mg)/mL Drops 1 dose PO 2XW RF: 0 trazodone 50 mg tablet 50 - 150 mg PO BEDTIME PRN (Reason: Sleep) RF: 0 Referrals: Kayleen Pyle, [Primary Care Provider] -
--- NOTE | 2020-11-11 19:08 | PC.NURSE ---
pt states she had a vaginal exam [place]
--- NOTE | 2020-11-11 19:12 | DI.CT.S_ITS ---
PROCEDURE: CT KIDNEY URETER BLADDER (KUB) INDICATIONS: left flank pain, hematuria TECHNIQUE: Noncontrast 5 mm thick sections acquired from the diaphragms to the symphysis. 5 mm thick coronal and sagittal reformats were then performed. For radiation dose reduction, the following was used: automated exposure control, adjustment of mA and/or kV according to patient size. COMPARISON: [facility], CT, ABDOMEN/PELVIS WITH CONTRAST, 06/04/2017, 0:38. FINDINGS: Image quality: Excellent. Lung bases: Lung bases are clear. Heart size is normal. Urinary system: Both kidneys are normal in size. No kidney stones. No hydronephrosis or perinephric fat stranding. Both ureters appear non-dilated throughout their expected courses. Bladder wall thickness is normal; no calcified bladder stones. Other solid organs: Liver is normal in size. Gallbladder is surgically absent. Pancreas is normal in contours. Spleen is normal in size. No adrenal nodules. Peritoneum and bowel: Partial gastrectomy. Unenhanced bowel loops demonstrate normal wall thickness and caliber. No free fluid or air. Nodes and vessels: No retroperitoneal or mesenteric adenopathy by size criteria. Aorta and inferior vena cava are normal in caliber. Abdominal wall: No ventral hernias. Pelvis: No free pelvic fluid. No inguinal hernias or adenopathy. Uterus is surgically absent. Bones: No suspicious bony lesions. No vertebral body compression fractures. IMPRESSION: Unremarkable CT KUB. No renal stone, ureteral stone, or hydronephrosis. Dictated by: Basilio Portillo M.D. on 11/11/2020 at 19:28 Approved by: Basilio Portillo M.D. on 11/11/2020 at 19:33
[2020-11-11] MEDS: SODIUM CHLORIDE 0.9% 1,000 ML 1000 ML IV (19:23)
[2020-11-11] MEDS: KETOROLAC 60 MG/2 ML VIAL 15 MG IV (19:23)
[2020-11-11] MEDS: ONDANSETRON 4 MG/2 ML INJ IV (19:24)
[2020-11-11 19:51] LABS: Add Manual Diff / Slide Review NO; Basophils Absolute Auto 0 /uL (0-100); Basophils Percent Auto 0.5 % (0-2); Eosinophils Absolute Auto 200 /uL (0-450); Hematocrit 39.9 % (36-46); Hemoglobin 12.8 g/dL (12.0-16.0); Lymphocytes Absolute Auto 3000 /uL (1100-4500); Lymphocytes Percent Auto 38.5 % (25-40); Mean Corpuscular HGB Conc 32.2 % (30-36); Mean Corpuscular Hemoglobin 26.3 PG (26-34); Mean Corpuscular Volume 81.8 fL (80-100); Monocytes Absolute Auto 500 /uL (0-900); Neutrophils Absolute Auto 4100 /uL (1500-7000); Platelet Count 255 X10^3/uL (150-400); Red Blood Cell Count 4.88 X10^6/uL (4.0-5.2); Red Cell Distribution Width 14.8 % (11.6-14.8); White Blood Cell Count 7.8 X10^3/uL (4.5-11.0)
[2020-11-11 19:57] LABS: Lipase 136 U/L (23-300)
[2020-11-11 19:59] LABS: Alanine Aminotransferase 17 IU/L (<35); Albumin 4.4 g/dL (3.5-5.0); Albumin Globulin Ratio 1.3 (1.0-2.8); Alkaline Phosphatase 61 U/L (38-126); Aspartate Aminotransferase 26 IU/L (14-36); BUN Creatinine Ratio 35.8 (6-22); Bilirubin Total 0.3 mg/dL (0.2-1.3); Blood Urea Nitrogen 19 mg/dL (7-17); Carbon Dioxide 29 mmol/L (22-32); Chloride 105 mmol/L (98-107); Estimated Glomerular Filt Rate > 60.0 mL/min (>60); Globulin 3.4 g/dL (1.7-4.1); Glucose 98 mg/dL (70-100); Potassium 4.5 mmol/L (3.4-5.1); Sodium 139 mmol/L (137-145); Total Protein 7.8 g/dL (6.3-8.2)
[2020-11-11 20:00] LABS: HEMOLYSIS 58 (0-50)
[2020-11-11 20:14] VITALS: BP 111/59; PULSE 90; RESP 16; O2SAT 99
[2020-11-11 20:16] LABS: Procalcitonin < 0.05 ng/mL (<0.5)
[2020-11-11] MEDS: OXYCODONE/APAP 5/325 PREPACK 1 BOTTLE MISC (21:01)
[2020-11-11 21:06] VITALS: BP 115/80; PULSE 90; RESP 16; O2SAT 99
== END 2020-11-11 21:06 | disposition home or self-care (01) ==
PROVIDERS: Emergency Provider Emergency Medicine; PCP Family Medicine
DX: R10.9 Unspecified abdominal pain (principal); R31.0 Gross hematuria; R07.9 Chest pain, unspecified; Z90.710 Acquired absence of both cervix and uterus
CPT/HCPCS: 74176; 80053; 81003; 81015; 83690; 84145; 85025; 87077; 87086; 87147; 87186; 96361; 96374; 96375; 99283; 99284; J1885; J2405

== ENCOUNTER 2021-03-04 16:31 | Emergency (ER) | payer OTHER, SELFPAY ==
[2021-03-04 17:08] VITALS: BP 135/77; PULSE 81; RESP 18; TEMP 37; O2SAT 100
--- NOTE | 2021-03-04 18:43 | ED_ITS ---
HPI - General Adult General Chief complaint: Upper Respiratory Symptoms Stated complaint: Sinus Issue Going On Time Seen by Provider: 03/04/21 16:36 Source: patient Mode of arrival: Ambulatory Limitations: no limitations History of Present Illness HPI narrative: Patient is a 35-year-old female who is here with her 2 kids for evaluation of sinus congestion and right greater than left ear discomfort. She states that she has a history of reactive airway disease. Has had sinus congestion for some time now. She states that she normally gets a dose of Decadron and then feels better for the rest of the season. She is here physically to get a dose of steroids. Related Data Home Medications Medication Instructions Recorded Confirmed ergocalciferol (vitamin D2) 50,000 unit PO QWEEK 06/13/19 06/13/19 ferrous sulfate 1 dose PO 2XW 06/13/19 06/13/19 trazodone 50 - 150 mg PO BEDTIME PRN 06/13/19 06/13/19 Previous Rx's Medication Instructions Recorded oxycodone-acetaminophen 1 tab PO Q6H PRN #20 tab 11/11/20 Allergies Allergy/AdvReac Type Severity Reaction Status Date / Time albuterol [From VENTOLIN HFA] Allergy Unknown Verified 06/13/19 12:27 sulfamethoxazole Allergy Unknown Verified 06/13/19 12:27 [From BACTRIM] trimethoprim [From BACTRIM] Allergy Unknown Verified 06/13/19 12:27 Review of Systems Constitutional Constitutional: Denies fever(s) Eyes Eyes: Denies itchy eyes ENT Ears, Nose, Mouth, and Throat: Reports sinus pressure and Denies sore throat Cardiovascular Cardiovascular: Denies dyspnea Respiratory Respiratory: Denies cough and Denies dyspnea Gastrointestinal Gastrointestinal: Reports system reviewed and no additional complaints, except as documented Integumentary/Breasts Skin/Breast: Reports system reviewed and no additional complaints, except as documented Neurologic Neurologic: Reports system reviewed and no additional complaints, except as documented Hematologic/Lymphatic Hematologic/Lymphatic: Reports system reviewed and no additional complaints, except as documented Allergic/Immunologic Allergic/Immunologic: Denies urticaria and Denies itchy eyes Patient History Medical History Cholelithiasis Incomplete miscarriage Miscarriage Near syncope Vasovagal syncope Surgical History (Updated 11/11/20 @ 20:38 by Nita Oliva MD) Hx of vaginal hysterectomy Social History Smoking Status: Never smoker Smoking Status: Never smoker alcohol intake frequency: 0-2 drinks per day Substance Use Type: does not use Exam Initial Vital Signs Initial Vital Signs: Vital Signs Temperature 98.6 F 03/04/21 17:08 Pulse Rate 81 03/04/21 17:08 Respiratory Rate 18 03/04/21 17:08 Blood Pressure 135/77 03/04/21 17:08 Pulse Oximetry 100 03/04/21 17:08 Const General: cooperative, comfortable and well developed Limitations: mental status not altered HENMT Head: normal to inspection and normocephalic Ears: TM's normal bilaterally Nose: external nose normal Face and sinus: normal facial exam Mouth: oral mucosae normal Eyes General: appearance normal, both eyes and all related structures Resp Effort & Inspection: normal respiratory effort Auscultation: clear to auscultation bilaterally Cardio Rate: regular rate Rhythm: regular rhythm Skin Lesions: no lesions Rashes: no rashes Neuro General: patient alert, patient awake and patient oriented x3 Cognition: normal cognition Speech: speech normal Extrem General: capillary refill normal Psych Appearance: grossly normal and well kempt Course Orders Ordered: Discontinued Medications Dexamethasone (Dexamethasone 4 Mg Tablet) 12 mg PO NOW ONE Stop: 03/04/21 18:44 Last Admin: 03/04/21 18:54 Dose: 12 mg Documented by: BTONER Vital Signs Vital signs: Vital Signs - 8 hr 03/04/21 17:08 Temperature 98.6 F Pulse Rate 81 Respiratory Rate 18 Blood Pressure 135/77 Pulse Oximetry 100 Medical Decision Making [facility] Narrative Medical decision making narrative: She is currently taking decongestant/allergy medications. She has a unremarkable exam. No indication for antibiotics. I did discuss with her steroids and the risks of these medications. I do not necessarily feel that she definitively needs to does however she states that whenever she gets symptoms like this in the spring time she feels better for the rest of the year. After discussion of the risks and benefits of steroids she opted to take a dose of the medication. She was given return precautions. She expressed understanding agreement. Discharge Plan Departure Patient Disposition: Home Clinical Impression: Upper respiratory infection, Allergies Instructions: Allergies (Alternative Therapy), DI for Viral Upper Respiratory Infection -- Adult Activity Restrictions/Additional Instructions: Recommend that you continue with all of your allergy medications. Contact your primary provider for follow-up. Return to the emergency department for any new or worsening symptoms Prescriptions: No Action oxycodone-acetaminophen 5-325 mg tablet 1 tab PO Q6H PRN (Reason: pain) Qty: 20 RF: 0 ergocalciferol (vitamin D2) 50,000 unit capsule 50,000 unit PO QWEEK RF: 0 ferrous sulfate 15 mg iron (75 mg)/mL Drops 1 dose PO 2XW RF: 0 trazodone 50 mg tablet 50 - 150 mg PO BEDTIME PRN (Reason: Sleep) RF: 0 Referrals: Kayleen Pyle DO [Primary Care Provider] -
--- NOTE | 2021-03-04 18:46 | PC.NURSE ---
pt states sinus congestion.
[2021-03-04] MEDS: dexAMETHasone 4 MG TABLET 12 MG PO (18:54)
== END 2021-03-04 19:05 | disposition home or self-care (01) ==
PROVIDERS: Emergency Provider Emergency Medicine; PCP Family Medicine
DX: J06.9 Acute upper respiratory infection, unspecified (principal); T78.40XA Allergy, unspecified, initial encounter
CPT/HCPCS: 99283

== ENCOUNTER 2022-02-18 19:27 | Emergency (ER) | payer OTHER, SELFPAY ==
[2022-02-18 20:01] VITALS: BP 132/78; PULSE 71; RESP 17; TEMP 36.6; O2SAT 100; BMI 50.5
--- NOTE | 2022-02-18 20:04 | DI.RAD.S_ITS ---
PROCEDURE: XR ELBOW LT MIN 3V INDICATIONS: unable to move left elbow due to pain TECHNIQUE: 3 views of the elbow were acquired. COMPARISON: None. FINDINGS: Bones: No fractures or dislocations. No bony erosions or periosteal reaction. No suspicious bony lesions. Soft tissues: No elbow joint effusion. No suspicious soft tissue calcifications. IMPRESSION: 1. No acute bony abnormality. Dictated by: Malick William M.D. on 02/18/2022 at 21:17 Approved by: Malick William M.D. on 02/18/2022 at 21:18
--- NOTE | 2022-02-18 22:34 | PC.NURSE ---
triage note reviewed and no change in assessment
--- NOTE | 2022-02-18 23:43 | ED.EXTPRO ---
HPI - Extremity Problem General Chief complaint: Extremity Problem,Nontraumatic Stated complaint: LEFT ELBOW UNABLE TO LIFT SWELLING & RED Time Seen by Provider: 02/18/22 23:36 Source: patient Mode of arrival: Ambulatory Limitations: no limitations History of Present Illness HPI Narrative: This is a 36-year-old female who has pain in her left elbow after [place] Patient states she did not appreciate pain immediately at that moment but on the drive home started to have increasing discomfort. She states her arm did sort of hyper extend when this occurred. She has had increasing pain and swelling over the elbow radiating up and has increasing pain with pronation supination and full extension. She is more comfortable in a flexed position. Patient noticed some redness this morning but states it got better. She has not had any fevers. She has not had any cuts or injuries. She denies any other symptoms in the past. She does work as a hou. She has not had prior issues with but elbow before. She denies any other daily medications. She did take some ibuprofen today which she states was somewhat helpful. She states she has had her woman per to removed but no other surgeries. No illicit substances or IV drugs. Related Data Home Medications Medication Instructions Recorded Confirmed ergocalciferol (vitamin D2) 1,250 50,000 unit PO QWEEK 06/13/19 06/13/19 mcg (50,000 unit) capsule ferrous sulfate 15 mg iron (75 1 dose PO 2XW 06/13/19 06/13/19 mg)/mL oral drops trazodone 50 mg tablet 50 - 150 mg PO BEDTIME PRN 06/13/19 06/13/19 Previous Rx's Medication Instructions Recorded oxycodone-acetaminophen 5 mg-325 1 tab PO Q6H PRN #20 tab 11/11/20 mg tablet prednisone 20 mg tablet 20 mg PO DAILY #5 tab 02/19/22 tramadol 50 mg tablet (Ultram) 50 mg PO Q6H PRN #5 tab 02/19/22 Allergies Allergy/AdvReac Type Severity Reaction Status Date / Time albuterol [From VENTOLIN HFA] Allergy Unknown Verified 06/13/19 12:27 sulfamethoxazole Allergy Unknown Verified 06/13/19 12:27 [From BACTRIM] trimethoprim [From BACTRIM] Allergy Unknown Verified 06/13/19 12:27 Review of Systems Review of Systems ROS Unobtainable: All systems reviewed & are unremarkable except as noted in HPI and below Patient History Medical History Cholelithiasis Incomplete miscarriage Miscarriage Near syncope Vasovagal syncope Surgical History Hx of vaginal hysterectomy Social History Smoking Status: Never smoker Smoking Status: Never smoker alcohol intake frequency: a few times a month Substance Use Type: does not use Exam Narrative Exam Narrative: GENERAL: Alert and oriented x three, female in mild distress. HEENT: Head normocephalic, atraumatic, EOMI, pupils reactive, face symmetric, moist mucous membranes NECK: Supple, full range of motion CARDIOVASCULAR: Regular rate and rhythm without murmurs, rubs or gallops. RESPIRATORY: Breath sounds equal bilaterally, no wheezes rales or rhonchi. ABDOMEN: Soft, nontender. Normoactive bowel sounds all 4 quadrants. No guarding or rebound, rigidity, no mass EXTREMITIES: Normal range of motion, no clubbing. Neurovascularly intact. 2+ radial pulse. No warmth, erythema or skin changes noted. Patient has discomfort with palpation particularly over the olecranon and medial and lateral epicondyle. There is no enlarged bursa appreciated. Patient is able to pronate and supinate. No bony tenderness of the upper clavicle, shoulder, upper humerus, lower forearm, wrist or hand. NEUROLOGICAL: Cranial nerves II through XII grossly intact. Moving all extremities SKIN: Warm, dry, no petechiae, no rashes or lesions. Initial Vital Signs Initial Vital Signs: Vital Signs Temperature 97.8 F 02/18/22 20:01 Pulse Rate 71 02/18/22 20:01 Respiratory Rate 17 02/18/22 20:01 Blood Pressure 132/78 02/18/22 20:01 Pulse Oximetry 100 02/18/22 20:01 Course Orders Ordered: ED Orders 02/18/22 20:04 XR elbow LT min 3V Stat Discontinued Medications Tramadol HCl (Tramadol 50 Mg Prepack) 1 bottle MISC SEEINSTR ONE Stop: 02/19/22 00:05 Last Admin: 02/19/22 00:18 Dose: 1 bottle Documented by: NORAH Vital Signs Vital signs: Vital Signs - 8 hr 02/18/22 20:01 02/19/22 00:21 Temperature 97.8 F Pulse Rate 71 72 Respiratory Rate 17 18 Blood Pressure 132/78 126/74 Pulse Oximetry 100 99 MDM - Extremity (Nontraumatic) Imaging Data Extremity x-ray #1: Radiologist's Impression: Evelyn Wilder??36??F??1985 ? Allergy/Adv: albuterol, sulfamethoxazole, trimethoprim (More??) Close Elbow X-Ray (Signed) Malick William - 02/18/22 Abdomen/Pelvis CT (Signed) Basilio Portillo - 11/11/20 Vascular Ultrasound (Signed) Lenny Woody - 04/06/18 Abdomen Ultrasound (Signed) Jasper Devlin - 04/06/18 Radiology - Historical 12/14/17 Radiology - Historical 12/14/17 Radiology - Historical 06/14/17 Radiology - Historical 06/04/17 Radiology - Historical 06/04/17 Radiology - Historical 06/03/17 Launch?[place] [address] XRay Report Signed Patient: Evelyn Wilder MR#: [id number] : 1985 Acct:[id number] Age/Sex: 36 / F Date of Service: 02/18/22 Loc: ED Accession Number: [id number] ?? Procedure: XR elbow LT min 3V Ordering Provider: Emily Avitia D.O. PROCEDURE:? XR ELBOW LT MIN 3V ? INDICATIONS:? unable to move left elbow due to pain ? TECHNIQUE:? 3 views of the elbow were acquired.? ? COMPARISON:? None. ? FINDINGS:? ? Bones:? No fractures or dislocations.? No bony erosions or periosteal reaction.? No suspicious bony lesions.? ? Soft tissues:? No elbow joint effusion.? No suspicious soft tissue calcifications.? ? ? IMPRESSION:? ? 1. No acute bony abnormality.? ? ? Dictated by: Malick William M.D. on 02/18/2022 at 21:17 ? ? Approved by: Malick William M.D. on 02/18/2022 at 21:18?? [facility] Narrative Medical decision making narrative: This is a 36-year-old female comes in with complaint of left elbow pain after removing her along and from a conveyor belt and having some hyper extension. Patient does have some tenderness on exam x-ray is negative. No obvious signs of enlarged bursa or infection are appreciated. Patient has discomfort with movement but does appear to have full range of motion throughout the elbow and arm. At this time plan for short course of pain medication, sling and steroid to see if this improves her symptoms. Discharge Plan Departure Patient Disposition: Home Clinical Impression: Elbow strain Instructions: DI for Elbow Pain Activity Restrictions/Additional Instructions: Follow-up with your physician for recheck. You may take steroids once daily until gone. Recommend taking ibuprofen 600 mg every 6 hours as needed for pain and/or Tylenol up to a 1000 mg 6 hours as needed. If it adequate you may take narcotic pain medication as prescribed. This medication can make you sleepy do not drive, perform hazardous activities or make any major decisions while taking it. This medication will make you constipated please take a stool softener once to twice daily until stools are soft and regular. Prescription sent to [facility] Please return for fevers greater 100.4 F, redness, warmth, increasing swelling of the elbow, unable to straighten or flex the elbow, new numbness, tingling or weakness or other new or concerning symptoms. Prescriptions: New prednisone 20 mg tablet 20 mg PO DAILY Qty: 5 0RF tramadol [Ultram] 50 mg tablet 50 mg PO Q6H PRN (Reason: pain) Qty: 5 0RF No Action oxycodone-acetaminophen 5-325 mg tablet 1 tab PO Q6H PRN (Reason: pain) Qty: 20 0RF ergocalciferol (vitamin D2) 50,000 unit capsule 50,000 unit PO QWEEK 0RF Label Comments: patient wasn't sure what day of the week. 06/13 ferrous sulfate 15 mg iron (75 mg)/mL Drops 1 dose PO 2XW 0RF trazodone 50 mg tablet 50 - 150 mg PO BEDTIME PRN (Reason: Sleep) 0RF Referrals: Kayleen Pyle DO [Primary Care Provider] -
[2022-02-19] MEDS: TRAMADOL 50 MG PREPACK 1 BOTTLE MISC (00:18)
[2022-02-19 00:21] VITALS: BP 126/74; PULSE 72; RESP 18; O2SAT 99
== END 2022-02-19 00:21 | disposition home or self-care (01) ==
PROVIDERS: Emergency Provider Emergency Medicine; PCP Family Medicine
DX: S46.812A Strain of other muscles, fascia and tendons at shoulder and upper arm level, left arm, initial encounter (principal); X58.XXXA Exposure to other specified factors, initial encounter
CPT/HCPCS: 73080; 99283

== ENCOUNTER → 2023-05-21 08:13 | Outpatient (CLI) | payer OTHER, SELFPAY ==
--- NOTE | 2023-05-21 | DI.ECHO.S_ITS ---
[place] [facility]---------+ [facility] +---------+ : : [address] : : : : [id number] : : : : Phone: [phone] Echocardiogram Report + + :Name: ROD KAMARA Study Date: 05/21/2023 Height: 60 in : :[facility] ReadingLocation: Weight: 270 lb : : Gender: Female BSA: 2.1 m2 : :: 1985 Age: 37 yrs BP: 125/81 mmHg: :Reason For Study: Syncope and Collapse : :Ordering Physician: ISAEL, : :LISA He Performed By: Shalini Broderick : :Referring: LISA KIRKLAND : + + Interpretation Summary 1) Normal left ventricular thickness, size, wall motion, and systolic function (EF 55-60%). 2) Normal right ventricular size and function. 3) No significant valvular abnormalities. 4) No prior Echo available for comparison. Procedure: A two-dimensional transthoracic echocardiogram with color flow and Doppler was performed. The study quality was technically difficult. There is no prior echocardiogram noted for this patient. The patient was in normal sinus rhythm during the exam. Left Ventricle: The left ventricle is normal in size and wall thickness. The ejection fraction is estimated to be 55-60%. Left ventricular systolic function appears normal without focal wall motion abnormalities. Diastolic parameters suggest probable normal left ventricular diastolic function and normal filling pressures. Right Ventricle: The right ventricle is normal size. The right ventricular systolic function is normal. Atria: The left atrial size is normal. Right atrial size is normal. There is no Doppler evidence for an interatrial shunt. Mitral Valve: The mitral valve is normal. There is no mitral valve stenosis. There is trace mitral regurgitation. Aortic Valve: The aortic valve is not well visualized. There is no aortic valve stenosis. No aortic regurgitation is present. Tricuspid Valve: The tricuspid valve leaflets are thin and pliable. There is no tricuspid stenosis. There is trace tricuspid regurgitation. The right ventricular systolic pressure is estimated to be at least 33 mmHg based on an estimated right atrial pressure of 15 mm Hg. Pulmonic Valve: The pulmonic valve is not well visualized. There is no pulmonic valvular stenosis. There is no pulmonic valvular regurgitation. Great Vessels: The aortic root is normal size. The ascending aorta is normal in size. The pulmonary artery is normal size. The IVC is dilated (diameter is greater than 2.1 cm) and it collapses less than 50% with a sniff. This suggests a high right atrial pressure of 15 mm Hg. Pericardium/ Pleura There is no pericardial effusion. There is no pleural effusion. MMode/2D Measurements & Calculations LVIDd: 4.3 cm LVOT diam: 2.2 cm LVIDs: 3.7 cm Ao root diam: 2.8 cm FS: 14.0 % asc Aorta Diam: 2.8 cm IVSd: 1.0 cm LVPWd: 1.1 cm LV casarez. diameter/BSA (cm/m^2): 2.0 LV sys. diameter/BSA (cm/m^2): 1.7 LA A2 area: 18.6 cm2 RA long axis: 5.1 cm LA A4 area: 16.3 cm2 RA area: 13.1 cm2 LA length (vol): 5.1 cm RA vol: 28.6 ml LA vol: 50.7 ml RA : 13.5 ml/m2 LA vol index: 23.9 ml/m2 RVD1 (basal): 3.5 cm LVLs ap4: 5.9 cm LVLd ap2: 8.0 cm TAPSE_phl: 2.5 cm LVLs ap2: 6.7 cm Doppler Measurements & Calculations Ao V2 max: 126.0 cm/sec LVOT Max Ibrahima: 82.9 cm/sec Ao V2 mean: 88.8 cm/sec LV V1 max P.7 mmHg Ao max P.0 mmHg LV V1 VTI: 19.5 cm Ao mean P.0 mmHg ÁNGEL(I,D): 2.4 cm2 Ao V2 VTI: 30.6 cm ÁNGEL(V,D): 2.5 cm2 sev ratio: 0.64 ÁNGEL indexed to BSA (cm^2/m^2): 1.1 MV E max ibrahima: 101.0 cm/sec TR max ibrahima: 211.0 cm/sec MV A max ibrahima: 67.7 cm/sec TR max P.8 mmHg MV E/A: 1.5 PA V2 max: 102.0 cm/sec Med Peak E' Ibrahima: 7.9 cm/sec PA V2 mean: 75.7 cm/sec E/E' med: 12.7 PA mean P.0 mmHg Lat Peak E' Ibrahima: 11.4 cm/sec PA pr(Accel): -7.9 mmHg E/E' lat: 8.9 E/e' average: 10.8 MV dec time: 0.15 sec SV(LVOT): 73.6 ml AV VR_phl: 0.66 ÁNGEL(VTI)/BSA_phl: 0.85 MV P1/2t-pr_phl: 45.0 msec Reading Physician:03:29 PM
== END ==
PROVIDERS: PCP Family Medicine; Referring Provider Family Medicine; Visit Provider Family Medicine
DX: R00.2 Palpitations (principal); R55 Syncope and collapse
CPT/HCPCS: 93306

== ENCOUNTER → 2023-11-29 07:33 | Outpatient (CLI) | payer OTHER, SELFPAY ==
--- NOTE | 2023-11-29 07:34 | DI.MRI.S_ITS ---
PROCEDURE: MR KNEE RT WO CON INDICATIONS: Pain in right knee TECHNIQUE: Noncontrast sagittal PD fast spin echo and T2 fast spin echo with fat saturation, sagittal 3-D FLASH with fat saturation; coronal T1 spin echo and PD fast spin echo with fat saturation, and axial PD fast spin echo with fat saturation through the knee. COMPARISON: None. FINDINGS: Image quality: Excellent. Anterior cruciate ligament: Apparent chronic complete tearing of the proximal anterior cruciate ligament. Mildly inferiorly displaced anterior cruciate ligament fibers at likely here it to the posterior cruciate ligament. Posterior cruciate ligament: Intact. Medial collateral ligament: Intact. Lateral collateral ligament: Intact. Medial meniscus: Intrasubstance signal in the body of the medial meniscus approaches the tibial articular surface, and a subtle nondisplaced tear is not excluded. Lateral meniscus: Intact. Medial and lateral tendons: The semimembranosus tendon insertions appear intact. Visualized portions of the pes anserinus tendons appear normal. The popliteus tendon is intact. Iliotibial band appears normal. Anterior structures: The quadriceps and patellar tendons appear intact. No patellar subluxation. No femoral trochlear dysplasia or ventral trochlear prominence. No edema in the infrapatellar fat pad. Bones and cartilage: No bone marrow contusions or fractures. Cellular marrow in the visualized osseous structures may be physiologic in a young woman. Medial femorotibial cartilage: No focal cartilage defect. Lateral femorotibial cartilage: No focal cartilage defect. Patellofemoral cartilage: Focal high-grade versus full-thickness cartilage loss at the lateral patellar facet with subchondral cystic changes. Soft tissues: A small joint effusion is present. Trace medial popliteal cyst. The musculature surrounding the knee is normal in bulk. Mild varicose veins are noted in the lateral subcutaneous tissues. IMPRESSION: 1. 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 2. Focal high-grade versus full-thickness cartilage loss at the inferior aspect of the lateral patellar facet with subchondral cystic changes. 3. Questionable horizontal oblique tear versus intrasubstance degeneration at the body of medial meniscus. 4. Small joint effusion. Approved by: Mario Gutierrez M.D. on 11/30/2023 at 15:27
== END ==
PROVIDERS: PCP Family Medicine; Referring Provider Family Medicine; Visit Provider Family Medicine
DX: S83.511A Sprain of anterior cruciate ligament of right knee, initial encounter (principal); M23.51 Chronic instability of knee, right knee; M25.561 Pain in right knee; M25.461 Effusion, right knee
CPT/HCPCS: 73721